=== PATIENT | female | born 2000 | race Caucasian/White ===

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

== ENCOUNTER 2018-09-30 05:04 | Inpatient (IN) | payer OTHER ==
[~2018-09-30] VITALS: Ht 167.6 cm; Wt 73.7 kg
[2018-09-30] VITALS (34 sets, daily range): BP systolic 98–149; BP diastolic 51–102
[2018-09-30] MEDS ORDERED: PRENTAB9 PO (05:31)
[2018-09-30] MEDS ORDERED: ZOLO25TA PO (05:31)
[2018-09-30] MEDS ORDERED: MAPA500T2 PO (05:32)
[2018-09-30] MEDS ORDERED: LACTATED RINGER'S 1000 ML IV ONE (09:15)
[2018-09-30] MEDS: LR 1,000 ML IV SCH ×3 (09:31→14:03)
[2018-09-30 09:40] LABS: HEMATOCRIT 33.6 % (36.0-47.0); HEMOGLOBIN 11.8 g/dl (12.0-15.5); MEAN CORPUSCULAR HGB CONC 35.1 g/dl (32.0-36.5); MEAN CORPUSCULAR VOLUME 91.1 fl (80.0-96.0); PLATELET COUNT, AUTOMATED 177 10^3/uL (150-450); RED BLOOD COUNT 3.69 10^6/uL (4.00-5.40); WHITE BLOOD COUNT 9.3 10^3/uL (4.0-10.0)
[2018-09-30] MEDS ORDERED: FENTANYL 2MCG/ML ROPIVACAINE 0.2% IN 0.9% NACL 100ML IVBAG As Ordered ONE (10:09)
[2018-09-30] MEDS ORDERED: FENTANYL/ROPIVACAINE/NACL BAG 100 ML EPIDURAL SCH (11:00)
[2018-09-30] MEDS ORDERED: EPIDURAL COMMENT XX SCH (11:00)
[2018-09-30] MEDS ORDERED: diphenhydrAMINE INJ 50MG/ML VIAL (J1200) IV PRN (11:00)
[2018-09-30] MEDS ORDERED: EPIDURAL/PCA KEYS XX PRN (11:00)
[2018-09-30] MEDS ORDERED: ePHEDrine SULFATE 25 MG/5 ML(5MG/ML) SYRINGE IV PRN (11:00)
[2018-09-30] MEDS ORDERED: LACTATED RINGER'S 1000 ML IV PRN (11:00)
[2018-09-30] MEDS ORDERED: ONDANSETRON 4MG/2ML VIAL (J2405) IV PRN (11:00)
[2018-09-30] MEDS ORDERED: NALOXONE INJ 0.4 MG/1 ML VIAL (J2310) IV PRN (11:00)
[2018-09-30] MEDS ORDERED: REFRIGERATOR IV KEYS XX PRN (11:00)
[2018-09-30] MEDS ORDERED: OXYTOCIN 30 UNITS IN 0.9% NaCl 500ML IV BAG (J2590) As Ordered ONE (11:54)
--- NOTE | 2018-09-30 16:01 | HPE ---
DATE OF ADMISSION: 09/30/2018 HISTORY: This patient is a 18-year-old, 2, para 0, abort 1, last menstrual period (LMP) 12/21/2017, estimated date of confinement (EDC) 09/27/2018, at 40 and 3 weeks of gestation, who came in on 09/20/2018 at 0200 hours in the morning. Risk factors is she is dependent on her mother. She has Berwick depression scale (EPDS) 13/30 and has been seen in [facility]. PAST HISTORY: 2016, at 9 weeks, spontaneous with dilation and curettage. Labs are A+, HIV negative, hepatitis negative, RPR negative, rubella immune. Varicella immune. Urine negative. Gonorrhea and chlamydia are negative. 1-hour glucose 131. GBS is negative. On examination, she appears distressed. Contractions are 3-5 minutes apart, lasting 40 seconds. Category 1 strip. Symphysis fundus height is 40, vertex OA, 4 cm, 60% effaced and -3 station. An artifical rupture of membranes (AROM) was done draining light meconium stained liquor. Neonatology will be made aware. Her blood pressure is 103/59, respirations are 20, pulse 63, and temperature is 98.3. Urine is 1.010, pH of 7 and negative. The rest the examination unremarkable. She is normocephalic, atraumatic. Neck full range of motion. Pupils equally reactive to light. Distal pulses are symmetric. No evidence of deep venous thrombosis (DVT), pulmonary embolism (PE), or superficial phlebitis. Chest is clear bilaterally to bases. No wheezes or rhonchi. No costovertebral angle (CVA) tenderness.. Abdomen is soft. Uterus is appropriate. Symphysis fundus height. Four quadrant bowel sounds are noted. She has no rashes, lesions or pruritus. She does have tattoos and piercings. No arthralgia, myalgia. No complaint joint pain. No complaint of cough, wheeze, shortness of breath or dyspnea on exertion. No nausea, vomiting, diarrhea or constipation. No urgency or frequency. She has no [employer] issues. Past medical history is unremarkable. As mentioned, she has EPDS and is very dependent. We discussed the plan of care and management with both her and her partner and her mother, and the plan is to hydrate the patient and AROM, which did we did indicating light meconium, and an epidural at the appropriate interval. She is GBS negative. Reviewed the consent for vaginal delivery, which is through the vagina with a possible assistance of forceps and vacuum devices if needed, maternal or indications forceps or vacuum devices that can assist with vaginal delivery with normal pushing efforts cannot achieve delivery on their own or when delivery is needed in emergency for the baby's well-being, medications may be required to induce or augment labor in order achieve vaginal delivery, an episiotomy may be required to help baby deliver vaginally, you may also require repair of any lacerations or tears of the vagina or vulva that can occur with during delivery in case emergencies which occur requiring emergency section delivery so quickly that there may not be time to stop and complete consent forms, however, the physician will discuss the reason for the section and before they proceed with surgery, section delivery of her baby through an incision in the abdomen and some situations section may be safer to the mother and baby than continuing labor and is only performed when clinically indicated. Risks of vaginal delivery include but not limited to bleeding, infection, injury to the vagina pelvic structures, injury to baby damage to the uterus or reaction to anesthesia, uterine rupture, risk of hysterectomy for life-threatening bleeding situations and even . Medications used to induce or augment labor may increase risk of infection, uterine tachysystole, uterine rupture, heart rate abnormalities, need for emergency section or possibly hysterectomy and hemorrhage. Additional risks for the use of forceps and vacuum include scratches, hematomas to the head, intracranial bleed. The patient verbalized understanding of these risks and elected to proceed. We had a 45-minute discussion.
[2018-09-30] MEDS ORDERED: OXYTOCIN DRIP 30 UNITS in APPROPRIATE DILUENT 1 EA IV SCH (16:06)
[2018-09-30 16:13] LABS: CORD GAS ABE V -3.9; CORD GAS HCO3 V 23.7 MEQ/L; CORD GAS PCO2 V 53.3 mmHg; CORD GAS PH V 7.266 UNITS; CORD GAS PO2 V 22.5 mmHg; CORD GAS SBC V 20.1 MEQ/L; CORD GAS TCO2 V 25.3 MEQ/L
[2018-09-30] MEDS ORDERED: MOM 30ML SUSPENSION UDC PO PRN (16:15)
[2018-09-30] MEDS ORDERED: METHYLERGONOVINE MALEATE 0.2 MG TAB PO PRN (16:15)
[2018-09-30] MEDS ORDERED: ACETAMINOPHEN TAB 650MG DOSE (2X325MG) PO PRN (16:15)
[2018-09-30] MEDS ORDERED: RHOGAM 300 MCG (1500 IU) INJ (J2790) IM SCH (16:15)
[2018-09-30] MEDS ORDERED: IBUPROFEN 600 MG TAB PO PRN (16:15)
[2018-09-30] MEDS ORDERED: DOCUSATE SODIUM 100 MG CAP PO PRN (16:15)
[2018-09-30] MEDS ORDERED: ACETAMINOPHEN 500 MG TAB PO PRN (16:15)
[2018-09-30] MEDS ORDERED: ANUSOL HC CREAM 30GM TOP PRN (16:15)
[2018-09-30] MEDS ORDERED: MEASLES,MUMPS,RUBELLA VACCINE INJ (MMR-II) (90707) SC SCH (16:15)
[2018-09-30 16:16] LABS: CORD GAS ABE A -2.2; CORD GAS HCO3 A 27.7 MEQ/L; CORD GAS O2 SAT A 18.4 %; CORD GAS PCO2 A 71.8 mmHg; CORD GAS PH A 7.204 UNITS; CORD GAS SBC A 20.8 MEQ/L; CORD GAS TCO2 A 29.9 MEQ/L
[2018-09-30] MEDS ORDERED: medroxyPROGESTERone ACET IM SUSP 150 MG/ML VIAL (J1050) IM ONE (17:00)
[2018-09-30] MEDS ORDERED: OXYTOCIN INJ 10 UNITS/ML VIAL (J2590) IV ONE (17:00)
[2018-09-30] MEDS: SERTRALINE HCL 25 MG TABLET PO SCH (20:33)
[2018-09-30] MEDS: DIBUCAINE 1% OINTMENT 30GM TOP PRN (20:34)
[2018-09-30] MEDS ORDERED: medroxyPROGESTERone ACET IM SUSP 150 MG/ML VIAL (J1050) IM SCH (23:15)
[2018-10-01 05:43] VITALS: BP 121/68
[2018-10-01] MEDS: PRENATAL VITAMINS CHEWABLE TABLET PO SCH (07:25)
[2018-10-01] MEDS: IBUPROFEN 800 MG TAB PO PRN ×2 (07:25→18:46)
[2018-10-01 07:34] LABS: HEMATOCRIT 34.1 % (36.0-47.0); HEMOGLOBIN 11.7 g/dl (12.0-15.5); MEAN CORPUSCULAR HEMOGLOBIN 31.5 pg (27.0-33.0); MEAN CORPUSCULAR HGB CONC 34.3 g/dl (32.0-36.5); MEAN CORPUSCULAR VOLUME 91.7 fl (80.0-96.0); PLATELET COUNT, AUTOMATED 166 10^3/uL (150-450); RED BLOOD COUNT 3.72 10^6/uL (4.00-5.40); WHITE BLOOD COUNT 11.8 10^3/uL (4.0-10.0)
[2018-10-01] MEDS: DIBUCAINE 1% OINTMENT 30GM TOP PRN (16:34)
[2018-10-01 18:00] VITALS: BP 109/70
[2018-10-01] MEDS: SERTRALINE HCL 25 MG TABLET PO SCH (21:30)
--- NOTE | 2018-10-01 21:37 | DN ---
DATE: 09/30/2018 DELIVERY NOTE: 18-year-old 2, para 0 admitted with contractions at 40 and 3 weeks of gestation. After adequate epidural and AROM draining a bit of meconium tinged liquor she eventually got fully dilated, rotated from the OP position to the OA position, delivered over an intact perineum a live female weighing 3490 grams, 7 pounds 11 ounces. Placenta delivered spontaneously thereafter. Three-vessel cord. Membranes and tissues intact. Evaluation of the anterior, posterior and lateral martel was intact. Sphincter was tight. Uterus contracted well down on Pitocin. Arterial pH is not available at the present time. The patient and baby are tolerating the procedure well.
[2018-10-02 06:00] VITALS: BP 116/76
[2018-10-02] MEDS ORDERED: IBUP80TA PO (07:40)
[2018-10-02] MEDS: PRENATAL VITAMINS CHEWABLE TABLET PO SCH (07:51)
[2018-10-02] MEDS: DIBUCAINE 1% OINTMENT 30GM TOP PRN (11:12)
[2018-10-02] MEDS: IBUPROFEN 800 MG TAB PO PRN (11:12)
== END 2018-10-02 12:25 | disposition home or self-care (01) | DRG 807 ==
LOC: M LDO 05:04 → M LDI 08:50 → M OBS 19:03
PROVIDERS: ADMIT Obstetrics & Gynecology; ATTEND Obstetrics & Gynecology
PROC: 10E0XZZ Delivery of Products of Conception, External Approach (ICD-10-PCS; principal; 2018-09-30)
PROC: 10907ZC Drainage of Amniotic Fluid, Therapeutic from Products of Conception, Via Natural or Artificial Opening (ICD-10-PCS; 2018-09-30)
DX: O48.0 Post-term pregnancy (principal); Z37.0 Single live birth; Z3A.40 40 weeks gestation of pregnancy

== ENCOUNTER 2020-11-13 14:55 | Emergency (ER) | payer OTHER ==
[~2020-11-13] VITALS: Ht 165.1 cm; Wt 58.0 kg
[~2020-11-13 14:55] MED LIST: IBUP80TA PO; MAPA500T2 PO; PRENTAB9 PO; RALTEGRAVIR 400 MG TAB (ISENTRESS) PO SCH; TRUVADA 200MG/300MG TABLET PO SCH; ZOLO25TA PO
[2020-11-13 14:56] VITALS: BP 117/62
[2020-11-13 16:11] LABS: BASO # 0.1 10^3/uL (0.0-0.2); BASO % 1.2 % (0.0-1.0); EOS # 0.1 10^3/uL (0.0-0.5); EOS % 0.9 % (0.0-3.0); HEMATOCRIT 40.3 % (36.0-47.0); LYMPH # 2.3 10^3/uL (1.5-5.0); LYMPH % 31.1 % (24.0-44.0); MEAN CORPUSCULAR HGB CONC 34.7 g/dl (32.0-36.5); MEAN CORPUSCULAR VOLUME 92.2 fl (80.0-96.0); MONO # 0.5 10^3/uL (0.0-0.8); MONO % 6.8 % (2.0-8.0); NEUTROPHILS # 4.4 10^3/uL (1.5-8.5); NEUTROPHILS % 59.7 % (36.0-66.0); PLATELET COUNT, AUTOMATED 299 10^3/uL (150-450); RED BLOOD COUNT 4.37 10^6/uL (4.00-5.40); WHITE BLOOD COUNT 7.4 10^3/uL (4.0-10.0)
[2020-11-13 16:45] LABS: HCG, SERUM QUALITATIVE NEGATIVE (NEGATIVE)
[2020-11-13 16:51] LABS: ALBUMIN 4.4 GM/DL (3.2-5.2); ALT/SGPT 17 U/L (12-78); BILIRUBIN,TOTAL 0.2 MG/DL (0.2-1.0); BLOOD UREA NITROGEN 11 MG/DL (7-18); CALCIUM LEVEL 9.4 MG/DL (8.5-10.1); CARBON DIOXIDE LEVEL 29 MEQ/L (21-32); CHLORIDE LEVEL 106 MEQ/L (98-107); CREATININE FOR GFR 0.71 MG/DL (0.55-1.30); GLOMERULAR FILTRATION RATE > 60.0 (>60); GLUCOSE, FASTING 94 MG/DL (70-100); POTASSIUM SERUM 4.2 MEQ/L (3.5-5.1); SODIUM LEVEL 140 MEQ/L (136-145); TOTAL PROTEIN 7.6 GM/DL (6.4-8.2)
[2020-11-13 16:54] LABS: HEPATITIS B SURFACE ANTIBODY NEGATIVE (POSITIVE)
[2020-11-13 17:04] LABS: HEPATITIS B SURFACE ANTIGEN NEGATIVE (NEGATIVE)
[2020-11-13] MEDS ORDERED: ONDANSETRON 4 MG ORAL DISINTEGRATING TAB PO ONE (17:20)
[2020-11-13] MEDS ORDERED: metroNIDAZOLE (FLAGYL) 500MG TABLET PO ONE (17:20)
[2020-11-13] MEDS ORDERED: LIDOCAINE 1% SDV 5ML VIAL DILUENT ONE (17:20)
[2020-11-13] MEDS ORDERED: DOXYCYCLINE HYCLATE 100MG TABLET PO ONE (17:20)
[2020-11-13] MEDS ORDERED: ULIPRISTAL ACETATE 30 MG TAB (ELLA) PO ONE (17:20)
[2020-11-13] MEDS ORDERED: HEPATITIS B VACCINE 20MCG/ML 1ML SYRINGE (ADULT DOSE) IM ONE (17:20)
[2020-11-13] MEDS ORDERED: EXPOSURE KIT-ADULT 7 DAY SUPPLY PO ONE (17:20)
[2020-11-13] MEDS ORDERED: cefTRIAXone SOD 250MG VIAL (J0696 PER 250MG) IM ONE (17:20)
[2020-11-13] MEDS ORDERED: AZITHROMYCIN 250MG TABLET PO ONE (17:20)
[2020-11-13 17:32] LABS: HIV 1&2 SCREEN CENTAUR NEGATIVE (NEGATIVE)
[2020-11-13] MEDS ORDERED: RALT40TA PO (18:57)
[2020-11-13] MEDS ORDERED: DOXY-342 PO (18:57)
[2020-11-13] MEDS ORDERED: EMTR1TAB16 PO (18:57)
[2020-11-13] MEDS ORDERED: [UNRECOGNIZED DRUG - CODE] PO (21:18)
[2020-11-13 21:44] LABS: GC DNA AMPLIFICATION NEGATIVE (NEGATIVE)
[2020-11-13] MEDS: TRUVADA 200MG/300MG TABLET PO ONE ×2 (21:47→22:10)
[2020-11-13] MEDS: RALTEGRAVIR 400 MG TAB (ISENTRESS) PO ONE ×2 (21:48→22:10)
== END 2020-11-13 22:21 | disposition home or self-care (01) ==
LOC: M ED 14:55
DX: Z04.41 Encounter for examination and observation following alleged adult rape (principal); Z79.899 Other long term (current) drug therapy; Z91.89 Other specified personal risk factors, not elsewhere classified
CPT/HCPCS: 80053; 84703; 85025; 86706; 86780; 86803; 87070; 87081; 87110; 87210; 87255; 87340; 87389; 87491; 87591; 99283; J0696; Q0162

== ENCOUNTER → 2022-09-09 | Outpatient (REF) | payer OTHER ==
[~2022-09-09] MED LIST changes: +DOXY100C82 PO; +EMTR1TAB16 PO; +RALT40TA PO; -RALTEGRAVIR 400 MG TAB (ISENTRESS) PO SCH; -TRUVADA 200MG/300MG TABLET PO SCH; +[UNRECOGNIZED DRUG - CODE] PO
[2022-09-09 17:07] LABS: APPEARANCE, URINE TURBID (CLEAR); BACTERIA, URINE AUTO 1+ (NEGATIVE); BILIRUBIN, URINE AUTO NEGATIVE (NEGATIVE); BLOOD, URINE BLOOD 2+ (NEGATIVE); COLOR, URINE AMBER (YELLOW); GLUCOSE, URINE (UA) AUTO NEGATIVE (NEGATIVE); KETONE, URINE AUTO NEGATIVE (NEGATIVE); LEUKOCYTE ESTERASE, URINE AUTO 3+ (NEGATIVE); MUCUS, URINE SMALL (NEGATIVE); NITRITE, URINE AUTO POSITIVE (NEGATIVE); PROTEIN, URINE AUTO 2+ mg/dL (NEGATIVE); RBC, URINE AUTO TNTC /HPF (0-3); SPECIFIC GRAVITY URINE AUTO 1.016 (1.002-1.035); SQUAMOUS EPITHELIAL CELL UR AU 30 /HPF (0-6); UROBILINOGEN, URINE AUTO 0.2 mg/dL (0.0-2.0); WBC, URINE AUTO TNTC /HPF (0-3)
== END ==
LOC: M LAB REF 16:13
PROVIDERS: ATTEND Physician Assistant Medical
DX: N39.0 Urinary tract infection, site not specified (principal)